=== PATIENT | female | born 1950 | race Caucasian/White ===

== ENCOUNTER 2021-05-29 11:09 | Emergency (ER) | payer MEDICARE, OTHER ==
[~2021-05-29 11:09] MED LIST: IBUPROFEN800 MG PO; LIDOCAINE TP; PENVEE K 500 M500 MG PO
== END 2021-05-29 14:40 | disposition home or self-care (01) ==
LOC: ER1 11:09
DX: S59.292A Other physeal fracture of lower end of radius, left arm, initial encounter for closed fracture (principal); W01.0XXA Fall on same level from slipping, tripping and stumbling without subsequent striking against object, initial encounter; Y92.009 Unspecified place in unspecified non-institutional (private) residence as the place of occurrence of the external cause
CPT/HCPCS: 29125; 73110; 99283